=== PATIENT | male | born 1955 | race African-American/Black ===

== ENCOUNTER 2018-03-17 06:39 | Observation (INO) | END 2018-03-18 18:33 | disposition home or self-care (01) ==

== ENCOUNTER 2018-05-04 20:48 | Emergency (ER) | END 2018-05-04 21:00 | disposition left against medical advice (07) ==

== ENCOUNTER 2018-05-05 11:14 | Emergency (ER) | END 2018-05-05 13:46 | disposition home or self-care (01) ==

== ENCOUNTER 2018-05-06 01:12 | Emergency (ER) | END 2018-05-06 04:32 | disposition left against medical advice (07) ==

== ENCOUNTER 2018-05-13 11:40 | Inpatient (IN) | END 2018-05-15 18:05 | disposition home or self-care (01) | DRG 392 ==

== ENCOUNTER 2018-07-08 11:33 | Emergency (ER) | END 2018-07-08 14:07 | disposition home or self-care (01) ==

== ENCOUNTER 2018-07-10 17:14 | Emergency (ER) | END 2018-07-10 18:49 | disposition home or self-care (01) ==